=== PATIENT | male | born 1945 | race Caucasian/White ===

== ENCOUNTER 2016-12-24 08:41 | Inpatient (IN) | payer MEDICARE ==
--- NOTE | 2016-12-21 12:58 | PCM.ANEPRE ---
Anesthesia Pre-Op Review Reason for Review: RADHA MUÑOZ 03/18 Anesthesia Recommendations: Proceed with Procedure Additional Comments STOP 5 hypertensive on B Juanpablo and amlodipine/HCTZ I feel it is appropriated to proceed with usual SAB with or without adductor canal block Chart Reviewed by: Low Alonso MD Dec 21, 2016 12:58
[~2016-12-24] VITALS: Ht 172.7 cm; Wt 112.8 kg
[2016-12-24] VITALS (11 sets, daily range): BP systolic 117–157; BP diastolic 58–93; PULSE 55–70; RESP 12–18; O2SAT 94–97
[2016-12-24] MEDS: Tranexamic Acid 100 mg/mL 10 mL Inj IV SCH ×2 (06:00→08:00)
[~2016-12-24 08:41] MED LIST: AMLO5TAB2 PO; Bupivacaine Liposome 1.3% 20 mL Inj INFILTRATE ONE; CARV12.52 PO; CeFAZolin Inj 2 GM in IV Premix 1 EACH IV ONE; HYDR25TA4 PO; Lactated Ringer's 1,000 ML IV ONE; Vancomycin Inj 1,000 MG in IV Premix 1 EACH IV ONE; [UNRECOGNIZED DRUG - CODE] TP
[2016-12-24] MEDS ORDERED: SAW/1TAB2 PO (09:39)
--- NOTE | 2016-12-24 11:15 | PCM.HPANE ---
Patient Data Date of Service: Dec 24, 2016 Surgeon Admitting Provider: Attending Provider:Brian Russ MD Primary Care Physician:Franco Mantilla MD Other Provider:Osiris Sahu Anesthesia Reason for Visit Left Knee Arthritis Ht/WT & BMI Height (Feet): 5 Height (Inches): 8.00 Weight (Kilograms): 108.5 Body Mass Index 36.00 Allergies Uncoded Allergies: gentamycin (crobefate) (Adverse Reaction, Severe, EYES SWELL, 12/20/16) Past Anesthesia History Anesthesia History: Denies:: Anesthesia Reactions, Malignant Hyperthermia Diabetes History Hx Diabetes?: No MRSA MRSA: No Medications Hypertension Medication: Yes (HCTZ,AMLODIPINE) Home Meds Incl Beta Juanpablo: Yes Date Beta Juanpablo Taken: Dec 24, 2016 Time Beta Juanpablo Taken: 0600 Reported Medications Saw/Vit E/Sod Carin/Lyc/Beta/Pyg (Prostate Health Caplet)1 Each Tablet1 Each PO 12/24/16 Trolamine Salicylate (Alcis)59.15 Ml Cream.ml.1 Applic TP DIRECTED PRN For Pain 10% 12/20/16 Hydrochlorothiazide 25 Mg [id number] Mg PO BID 30 Days Ref 0 12/20/16 Carvedilol 12.5 Mg Lgpfmg02.5 Mg PO BID Ref 0 12/20/16 Amlodipine 5 Mg Tablet5 Mg PO DAILY Ref 0 12/20/16 History History of ENT Problems?: Yes HEENT History: Positive for:: Cataracts (S/P B/L [id number]) Hx of Heart Problems?: Yes Cardiovascular History: Positive for:: Hypertension Denies:: Heart Murmur Hx of Respiratory Problem?: No Respiratory History: Denies:: Use of C-PAP Machine Hx Neurologic Problems?: Yes Neurological History: Positive for:: TIA (2010) Hx of GI Problems?: No Hx of Problems?: No Male Hx: Denies:: Prostate Problems Scrotal Mass Testicular Surgery Skin History: Denies:: History Skin Disorders? Pressure Ulcers Hx Musculoskeletal Problems?: Yes Musculoskeletal History: Positive for:: Degenerative Joint Musculoskeletal Trauma (S/P ANKJLE FUSION) Osteoarthritis (LT KNEE=CURRENT PROBLEM) Hx of Psycho/Social Problems?: No Hx Surgeries?: Yes (B/L CATARACTS,ANKLE FUSION) Hx Any Other Health Problems?: Yes Other History: Denies:: Cancer Endocrine Disease Hospitalization Thyroid Disease History Blood Transfusions: Denies:: Blood Transfusions Hx Diabetes: No Have You Smoked inLast 12 mo: No Stop/Bang S-Snoring: Do You Snore Loudly: No T-Tired: feel tired, fatigued: No O-Obsered: Observed not breath: No P-Blood Pressure: treated: Yes B- Body Mass Index > 35 kg/m2: Yes A- Age over 50: Yes N- Neck Large Circumference: Yes G- Gender Male: Yes PASCUAL Total Score: 5 PASCUAL Risk Assessment: High Risk, =/>3 Yes PASCUAL Category 2: Yes Risk Assessment Category Category 1A: Patient has history of documented sleep apnea, and HAS NOT received any narcotic, sedative or anesthesia administration during this stay. Category 1B: Patient has history of documented sleep apnea, and HAS received any narcotic , sedative or anesthesia administration during this stay Category 2: Patient has SUSPECTED Obstructive Sleep Apnea, and HAS received any narcotic , sedative or anesthesia administration during this stay. Category 3: Patient has SUSPECTED Obstructive Sleep Apnea and HAS NOT received narcotic, sedative or anesthesia administration during this stay. Category 4: Outpatient in Procedural Areas with known sleep apnea or who screen positive for High Risk via the STOP/BANG questionnaire. Exam Exam Vital Signs Vital Signs Date Time Temp Pulse Resp B/P Pulse Ox O2 Delivery O2 Flow Rate FiO2 12/24/16 09:15 36.2 61 18 157/69 95 Room Air General Appearance: Alert, Oriented X3, Cooperative, No Acute Distress HEENT/AIRWAY: MP 2 Lungs: Normal Air Movement Heart: Exam Unremarkable Meds/Labs/Diagnostics Admission Meds Current Medications Lactated Ringer's 1,000 ml @ 120 mls/hr Q8H20M ONCE IV Last administered on 08:53; Start 12/24/16 at 05:00; Stop 12/24/16 at 13:19 Vancomycin/0.9 % Sod Chloride/ Premix (Vancomycin Inj/ IV Premix) 200 ml @ 133.333 mls/hr PREOP ONCE IV Last administered on 12/24/16 09:20; Start 12/24 at 06:00; Stop 12/24/16 at 07:29; Status DC Plan Impression Patient chart reviewed, patient interviewed and anesthestic plan with risks, benefits, and alternatives discussed, and informed consent obtained. NPO Status: 7PM ASA Physical Status: ASA2 Mod Systemic Disease Anesthetic Plan: Regional Block (Femoral block for post op pain), SAB Bene/Risks/Altern/Consents: Yes HP Complete Prior to Induction: Yes Oliver Cm MD Dec 24, 2016 11:15
[2016-12-24] MEDS ORDERED: Bupivacaine Liposome 1.3% 20 mL Inj ONE (11:37)
[2016-12-24] MEDS ORDERED: Bupivacaine Liposome 1.3% 20 mL Inj INFILTRATE ONE ×2 (12:30)
[2016-12-24] MEDS ORDERED: Bupivacaine-MPF 0.25%/EPI 30 mL Inj INFILTRATE ONE ×2 (12:30)
[2016-12-24] MEDS ORDERED: Lactated Ringer's 500 ML IV PRN (12:48)
[2016-12-24] MEDS ORDERED: Lactated Ringer's 1,000 ML IV SCH (12:48)
[2016-12-24] MEDS ORDERED: hydrALAZINE 20 mg/mL Inj IVPUSH PRN (12:50)
[2016-12-24] MEDS ORDERED: Dexamethasone 4 mg/mL Inj IVPUSH PRN (12:50)
[2016-12-24] MEDS ORDERED: HYDROmorphone 1 mg/mL Inj IVPUSH PRN (12:50)
[2016-12-24] MEDS ORDERED: EPHEDrine Sulfate 50 mg/mL Inj IVPUSH PRN (12:50)
[2016-12-24] MEDS ORDERED: Ondansetron 2 mg/mL 2 mL Inj IVPUSH PRN (12:50)
[2016-12-24] MEDS ORDERED: Phenylephrine 10,000 mCg/mL Inj IVPUSH PRN (12:50)
[2016-12-24] MEDS ORDERED: Atropine 0.4 mg/mL Inj IVPUSH PRN (12:50)
[2016-12-24] MEDS ORDERED: fentaNYL-PF 50 mCg/mL 2 mL Inj IVPUSH PRN (12:50)
[2016-12-24] MEDS ORDERED: Labetalol 5 mg/mL 4 mL Inj IV PRN (12:50)
[2016-12-24] MEDS ORDERED: MetoCLOpramide 5 mg/mL 2 mL Inj IVPUSH PRN (12:50)
[2016-12-24] MEDS ORDERED: Lactated Ringer's 1,000 ML IV ONE (13:19)
--- NOTE | 2016-12-24 14:01 | PCM.ANEP1 ---
Post Anesthesia Phase 1 PACU Phase 1 Assessment Date of Service: Dec 24, 2016 Vital Signs Vital Signs Date Time Temp Pulse Resp B/P Pulse Ox O2 Delivery O2 Flow Rate FiO2 12/24/16 13:55 36.2 64 16 118/58 95 Room Air 12/24/16 09:15 36.2 61 18 157/69 95 Room Air Anesthetic Administered: Regional Block, SAB Level of Alertness: Awake, talking TURNER's with Equal Strength: No Pain: No Nausea or Vomiting: No Oxygen Delivery: Room Air Lungs: Normal Air Movement Oliver Cm MD Dec 24, 2016 14:01
--- NOTE | 2016-12-24 14:01 | PCM.ANEP2 ---
Post Anesthesia Evaluation ASA/CMS Post Anesthesia Date of Service: Dec 24, 2016 VS in Patient's Normal Range?: Yes Resp Stable; Airway Patent?: Yes CV Function & Hydration Stable: Yes Mental Status Recovered?: Yes Pain control Satisfactory?: Yes N/V Control Satisfactory?: Yes Oliver Cm MD Dec 24, 2016 14:01
[2016-12-24 14:26] LABS: APPEARANCE,URINE HAZY (CLEAR,HAZY); COLOR,URINE STRAW (YELLOW); OCCULT BLOOD,URINE NEGATIVE (NEGATIVE); PH,URINE 7.5 (5.0-8.0)
--- NOTE | 2016-12-24 14:27 | DRSVH ---
PROCEDURE: X-RAY LEFT KNEE, ONE OR TWO VIEWS ([id number]) INDICATIONS: CHECK ALIGNMENT TECHNIQUE: 2 views of the knee acquired. COMPARISON: None. FINDINGS: Bones: Patient is status post left knee joint arthroplasty. Hardware components are in expected pos itions. There is a slight varus angulation. Visualized bony structures are intact. Soft tissues: Overlying postoperative changes are noted including a joint effusion, joint and soft t issue gas, and soft tissue edema. A surgical drain is present. IMPRESSION: 1. Postsurgical changes status post left knee arthroplasty as described. Dictated by: Rome Warren M.D. on 12/24/2016 at 14:24 Approved by: Rome Warren M.D. on 12/24/2016 at 14:25
--- NOTE | 2016-12-24 14:50 | NUR ---
Arrived on Unit Patient arrived on floor from PACU in stable condition. VSS. A&Ox3. Dressing CDI. HemoVac clamped until 1700. IV infiltrated. Unable to establish new IV. IV therapy contacted. at bedside. Patient orientated to bed, call light, and room. Call light and tray table within reach. Will continue to monitor patient hourly.
[2016-12-24] MEDS ORDERED: Bupivacaine 0.5% 50 mL Inj ONE (15:00)
[2016-12-24] MEDS ORDERED: Propofol 10,000 mCg/mL 20 mL Inj ONE (15:00)
[2016-12-24] MEDS ORDERED: Ondansetron 2 mg/mL 2 mL Inj ONE (15:00)
[2016-12-24] MEDS ORDERED: Dexamethasone 4 mg/mL Inj ONE (15:00)
[2016-12-24] MEDS ORDERED: Lidocaine PF 1% 30 mL Inj ONE (15:00)
[2016-12-24] MEDS ORDERED: fentaNYL-PF 50 mCg/mL 2 mL Inj ONE (15:00)
[2016-12-24] MEDS ORDERED: MetoCLOpramide 5 mg/mL 2 mL Inj IV PRN (15:50)
[2016-12-24] MEDS ORDERED: Sodium Biphos-Phos 133 mL Enema RECTAL PRN (15:50)
[2016-12-24] MEDS ORDERED: Ondansetron 2 mg/mL 2 mL Inj IV PRN (15:50)
[2016-12-24] MEDS ORDERED: HYDROcodone-APAP 5-325 mg Tablet PO PRN (15:50)
[2016-12-24] MEDS ORDERED: Alum-Mag Hydrox-Simeth 30 mL Suspension PO PRN (15:50)
[2016-12-24] MEDS ORDERED: Magnesium Hydroxide 10 mL Oral Concentration PO PRN (15:50)
[2016-12-24] MEDS ORDERED: LORazepam 0.5 mg Tablet PO PRN (15:50)
[2016-12-24] MEDS ORDERED: Ondansetron 8 mg ODT Tablet PO PRN (15:50)
[2016-12-24] MEDS ORDERED: diphenhydrAMINE 25 mg Capsule PO PRN (15:50)
[2016-12-24] MEDS: Lactated Ringer's 1,000 ML IV SCH (17:10)
[2016-12-24] MEDS: hydrOXYzine Pamoate 25 mg Capsule PO PRN ×2 (18:22→23:24)
[2016-12-24] MEDS: oxyCODONE-Acetamin 5-325 mg Tablet PO PRN (18:22)
[2016-12-24] MEDS ORDERED: CeFAZolin 2 Gm/50 mL D5W Premix IV SCH (20:30)
[2016-12-24] MEDS: Ketorolac 15 mg/mL Inj IV SCH (21:58)
--- NOTE | 2016-12-24 23:13 | OP ---
[address] [address] OPERATIVE REPORT PATIENT: TOMY MATTHEWS : 1945 MR#: [id number] ADMIT: 12/24/2016 JOB ID: [id number] DATE OF SURGERY: 12/24/2016 PREOPERATIVE DIAGNOSIS(ES): Advanced osteoarthritis, left knee. POSTOPERATIVE DIAGNOSIS(ES): Advanced osteoarthritis, left knee. PROCEDURE: Total knee arthroplasty. SURGEON: Brian Russ MD. SQUAD LEADER: Niki Briggs PA-C. Territory Development Manager required due to the major complexity of the operation. COMPLICATIONS: None. INDICATIONS: This man has severe osteoarthritis of his left knee. He has failed conservative treatment and elects to proceed with a total knee replacement. He understands and accepts the potential for risks and complications, which include but is not limited to infection, thromboembolic, neurovascular events, as well as potential for implant failure. Understanding these, he wishes to proceed. PROCEDURE: The patient was prepped and draped in usual sterile fashion. An anteromedial approach was made. The patella was subluxed laterally, cut transversely, sized to a 38. Drill holes were made. Patellar protection plate was utilized. Drill hole placed in the distal femur. A 5 degree valgus distal femoral cut was made. Bone fragments removed. External rotation tool was utilized and the knee was sized to a 9 femoral component, fixed in appropriate position. Rotation and drill holes and chamfer cuts were made. The tibia was cut with the extramedullary tool sized to a G component. Extensive osteophytes and degenerative meniscal tears were removed. All meniscal tears and osteophytes were removed. The knee was lavaged with pressurized power irrigant. The tibia was prepared with component in appropriate position and rotation. Pressurized lavage was followed by pressurized cementation of the components. Excess cement was removed during the curing process and the final construct was assembled. The deep Hemovac drain was left. Tourniquet let down. Hemostasis achieved. Knee closed with #2 Quill deep, followed by 2-0 Vicryl, 3-0, and a 4-0 intracuticular stitch. Sterile dressings were applied. Patient returned to the recovery room in stable condition. He tolerated the procedure well. There were no complications.
[2016-12-25 00:45] VITALS: BP 124/78; PULSE 81; RESP 18; O2SAT 98
[2016-12-25] MEDS: Ketorolac 15 mg/mL Inj IV SCH ×2 (03:18→08:52)
--- NOTE | 2016-12-25 03:29 | NUR ---
Pain On initial assessment, patient denied having any knee pain. At 2315, patient stated pain 8/10 on pain scale. Pain medication administered along with Vistaril. Patient resting comfortably. Continuous pulse ox on. Patient encouraged to take deep breaths with coughing. VSS. Call light within reach. Care continues.
[2016-12-25 05:35] VITALS: BP 127/66; PULSE 57; RESP 20; O2SAT 96
[2016-12-25] MEDS: oxyCODONE-Acetamin 5-325 mg Tablet PO PRN ×5 (05:48→23:47)
[2016-12-25] MEDS: hydrOXYzine Pamoate 25 mg Capsule PO PRN ×4 (05:48→23:48)
[2016-12-25 06:19] LABS: BASOPHILS % (AUTO) 0.1 % (0-3); EOSINOPHILS % (AUTO) 0 % (0-5); MONOCYTES % (AUTO) 8.7 % (4-12); Mean Corpuscular Hemoglobin 30.5 pg (27.0-35.0); Mean Corpuscular Volume 88.3 fL (81-100); NEUTROPHILS % (AUTO) 77.5 % (40-74); Platelet Count 193 bil/L (150-400)
[2016-12-25] MEDS ORDERED: CeFAZolin Inj 2 GM in IV Premix 1 EACH IV SCH (07:30)
--- NOTE | 2016-12-25 07:56 | PCM.PNORTH ---
Subjective Date of Service: Dec 25, 2016 Visit Information: Reason for Visit Left Knee Arthritis Surgery/Surgery Date Post-Op Day # Date of Admission: Dec 24, 2016 at 14:59 Hospital Day # Subjective Found patient awake and alert and sitting up in bed. No complaints of pain at this time. Discussed participation with physical therapy and timing for discharge. Patient indicates he does have help at home and is prepared to discharge on her before postop day 3. Patient also indicates he has 3 steps to enter his home and I have asked him to discuss that with physical therapy. As well patient relates that he must go home to [place] and will need some arrangements for priority boarding at the [facility]. I will leave high school social science teacher note towards that end. Patient has undergone a right ankle fusion approximately 2 years ago and is familiar with recuperation from major surgery. Postop General: No Complaints, No Shortness of Breath, No Chest Pain, Good Appetite Pain Management: PO, IV Push Objective Exam Objective Orientation: Alert and oriented 3 and pleasant. Dressing: Interoperative dressing is clean dry and intact. Wound: Wound is not observed today. Compartments: Calf and thigh are soft and nontender. Mobility/sensation: Mobility and sensation are intact at left lower extremity distally. FLORY hose: None Coleman: In place and working Drain: In place and working Gait: No gait as of this time with formal physical therapy. Vital Signs and I/O Vital Sign - Last Date Time Temp Pulse Resp B/P Pulse Ox O2 Delivery O2 Flow Rate FiO2 12/25/16 05:35 36.6 57 20 127/66 96 Room Air Intake and Output 12/24/16 12/24/16 12/25/16 Cumulative From/Thru 15:00 23:00 07:00 12/20/16 10:20 - 12/25/16 06:15 Intake Total 1560 ml 472 ml 1560 ml 3592 ml Output Total 130 ml 350 ml 550 ml 1030 ml Balance 1430 ml 122 ml 1010 ml 2562 ml Intake Oral 400 ml 850 ml 1250 ml IV Total 1560 ml 72 ml 710 ml 2342 ml Output Urine Total 80 ml 350 ml 450 ml 880 ml Drainage Total 100 ml 100 ml Estimated Blood Loss 50 ml 50 ml # Bowel Movements 0 0 Lab & Micro Results Laboratory Tests Test 12/24/16 14:00 12/25/16 05:23 Urine Color Straw (YELLOW) Urine Appearance Hazy (CLEAR,HAZY) Urine pH 7.5 (5.0-8.0) Urine Specific [place] 1.015 (1.003-1.035) Urine Protein Negativemg/dL (NEG,TRACE) Urine Glucose (UA) Negativemg/dL (NEGATIVE) Urine Ketones Negativemg/dL (NEGATIVE) Urine Occult Blood Negative (NEGATIVE) Urine Nitrite Negative (NEGATIVE) Urine Bilirubin Negative (NEGATIVE) Urine Urobilinogen 1.0mg/dL (NORMAL) Urine Leukocyte Esterase Negative (NEGATIVE) Urine RBC 0-2/hpf (0-2) Urine WBC 0-5/hpf (0-5) Urine Epithelial Cells Occasional/hpf (NONE-MOD) Urine Crystals Amorphous phosphates Urine Bacteria None/hpf (NONE-FEW) Urine Hyaline Casts None/lpf (NONE) Urine Granular Casts None seen (NONE SEEN) Urine Waxy Casts None seen (NONE SEEN) Urine Red Blood Cell Casts None seen (NONE SEEN) Urine White Blood Cell Casts None seen (NONE SEEN) Urine Mucus None seen (None Seen) Urine Trichomonas None seen (NONE SEEN) Urine Yeast None (NONE SEEN) Urinalysis Comment None Urine Culture Reflexed Not indicated White Blood Count 14.4th/mm3 (3.8-10.1) Red Blood Count 4.20mil/mm3 (4.40-5.80) Hemoglobin 12.8g/dL (13.8-17.2) Hematocrit 37.1% (41.0-50.0) Mean Corpuscular Volume 88.3fL (81-100) Mean Corpuscular Hemoglobin 30.5pg (27.0-35.0) Mean Corpuscular Hemoglobin Concent 34.5% (32.0-37.0) Red Cell Distribution Width 12.3% (12.3-15.4) Platelet Count 193bil/L (150-400) Neutrophils (%) (Auto) 77.5% (40-74) Lymphocytes (%) (Auto) 13.4% (14-46) Monocytes (%) (Auto) 8.7% (4-12) Eosinophils (%) (Auto) 0% (0-5) Basophils (%) (Auto) 0.1% (0-3) Result Diagram: 12/25/16 0523 General Appearance: Alert, Oriented X3, Cooperative, No Acute Distress Extremities: No Compartment Syndrom Noted, Thigh & Calf Soft/Nontender Postop Sensory Motor: Distal Motor Intact, Movement in Toes, Distal Sensation Intact SURGICAL WOUND : Drain Location Body Site: Knee Wound Drainage Type: Hemovac Activity: Activity per PT, Ambulate with PT (weightbearing as tolerated on left lower extremity using front-wheeled walker.) Catheters: Urethral 2 Way Coleman Assessment & Plan Impression Patient is a 71-year-old male who is undergone elective left total knee arthroplasty on 12/24/2016. He is alert and well-oriented and has made plans for his surgical recuperation. He anticipates discharge on Kathy for postop day 3 to home where he has family has caregivers. Problems: Plan Postop day # 1 from left total knee arthroplasty performed on 12/24/[address] Brian Russ. Weight bearing status: Weightbearing as tolerated on the left lower extremity Mobility aid: Front-wheeled walker Immobilization: None Precautions: Standard postoperative precautions for safety with up with assist until cleared by physical therapy for independent mobility. Physical therapy: Continue formal physical therapy for mobility, gait and safety. Outpatient physical therapy has been arranged if patient. Pain control: Continue pain control with by mouth pain medication avoiding IV pain medication if possible. Home pain medication Rx is in chart. DVT prophylaxis: Continue ASA 81 mg EC by mouth twice a day 6 weeks postop for DVT prophylaxis. Wound care: Keep surgical wound clean dry and covered seen in office in 2 weeks. Coleman: Present and working. Will be removed today on postoperative day 1 after first PT session. Dressing: Interoperative dressing is clean dry and intact. Interoperative dressing will be changed postop dressing on postop day #2 Drain: Present and working. Interoperative dressing will be removed today on postop day 1 at 24 hours postop. FLORY hose: None. Bilateral thigh-high FLORY hose we ordered today. Nursing communication: Nursing please discontinue Coleman today on postop day 1 after first PT session. Nursing please discontinue wound drain today on postop day 1 at 24 hours postop. Nursing please measure for bilateral thigh- high FLORY hose. Left lower extremity FLORY hose may be placed on postop day 2 after interoperative bandage has been changed. 2-week follow-up: Follow-up in 2 weeks at [facility] orthopedic clinic with mid-level provider on prearranged appointment for wound check and suture removal. 6-week follow-up: Follow-up in 6 weeks at [facility] orthopedic clinic with Dr. Brian Russ on prearranged appointment with breath 2 view knee x -rays on arrival. Plan: Patient anticipates discharge to home with family as caregivers on or before postop day #3. Discharge instructions: Weightbearing as tolerated on the left lower extremity using front-wheeled walker. Begin outpatient physical therapy as soon as possible post discharge. Keep wound clean dry and covered until seen in office in 2 weeks. Patient may shower and wound should be kept dry and covered. Discharge plan: Anticipate discharge to home with family as caregivers on her before postop day #3. VTE Prophylaxis: SCDs (right lower extremity only), FLORY Hose (bilateral thigh- high FLORY hose.), Other (ASA 81 mg EC by mouth twice a day 6 weeks postoperative DVT prophylaxis.) Gaston Walden PA-C Dec 25, 2016 07:56
[2016-12-25] MEDS: Lactated Ringer's 1,000 ML IV SCH (08:30)
[2016-12-25] MEDS ORDERED: Vancomycin Inj 1,500 MG in 0.9% Sodium Chloride 500 ML IV ONE (08:30)
--- NOTE | 2016-12-25 11:58 | NUR ---
Evaluation completed. Please go to "Notes" then click on "Assessments and Notes" (bottom left corner of screen). Then select appropriate discipline tab on top of screen.
[2016-12-25 14:46] VITALS: BP 120/70; PULSE 64; RESP 20; O2SAT 96
--- NOTE | 2016-12-25 15:30 | NUR ---
Social Work: Initial Assessment Data: See Initial Assessment. Pt is a 71 year old male admitted 12/24/16 for left knee arthritis per H&P. Pts insurance is group health medicare. PCP is Franco Mantilla MD. EMR Reviewed. SW met with pt at bedside to discuss discharge planning, SW role explained. Pt is alert and oriented x3. Pt resides in [facility] in a house with his and son where he remains independent with his ADLs. Pt does not use any DME and drives. Pt has lead neurodiagnostic technologist with HH or SNF. 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 PT assessed patient and recommending home at this time. Pt informed SW he already has outpt PT set up on [facility]. Pt requested Priority Boarding paperwork from [facility], SW followed up regarding this request and will be providing paperwork at discharge. SW educated about DPOA/Advanced Directives and provided pt with paperwork. SW encouraged pt to bring copy of completed DPOA to the hospital. Pts to transport home at discharge. SW provided phone number and plan on whiteboard. No anticipated discharge needs. SW continues to follow. Assessment: Pt who is independent at baseline. Plan: Anticipate pt to discharge home with to transport via POV. SW to provide Priority Boarding paperwork. Pt to receive outpt services for PT. No anticipated discharge needs. SW continues to follow. Addendum: 12/25/16 at 1530 by HARRIETT AARON Amended: Links added.
--- NOTE | 2016-12-25 18:12 | NUR ---
Post op day #1- Patient up ambulating with PT and FWW. Tolerating activity well. Ordered pain meds effective for incisional pain. Left leg dressing dry and intact. Hemovac and hopper cath dc'd this am per order. Patient voiding per urinal.
[2016-12-25 19:57] VITALS: BP 130/66; PULSE 65; RESP 18; O2SAT 96
--- NOTE | 2016-12-25 23:55 | NUR ---
Ortho Sensation intact, dressing dry. Incisional pain reduced to 1-2 with Percocet. MOM given at HS for constipation. Resting well without complaints. Continue with PT, progressing towards discharge. Addendum: 12/26/16 at 0755 by DEONNA CALHOUN RN needs 2 percocet Q3-4hrs to maintain good pain control.
[2016-12-26] MEDS: Lactated Ringer's 1,000 ML IV SCH ×2 (01:10→17:50)
[2016-12-26] MEDS: oxyCODONE-Acetamin 5-325 mg Tablet PO PRN ×6 (02:14→19:37)
[2016-12-26 04:35] VITALS: BP 120/65; PULSE 70; RESP 16; O2SAT 97
--- NOTE | 2016-12-26 06:32 | PCM.PNORTH ---
Subjective Date of Service: Dec 26, 2016 Visit Information: Reason for Visit Left Knee Arthritis Surgery/Surgery Date Post-Op Day # Date of Admission: Dec 24, 2016 at 14:59 Hospital Day # Subjective Found patient awake and alert this morning and sitting up in bed. No complaints of pain at this time. Patient did discuss that he refused some of his pain medication yesterday because he was feeling so well and had a rough night which required IV pain medication to manage. I spoke with nursing and patient and he will remain on his regular by mouth meds today without any IV and restabilize his pain control. Patient if talked about discharging tomorrow on postop day 3 and I encouraged him to continue participating well with physical therapy so that he may achieve safe ambulation for home. Postop General: No Complaints, No Shortness of Breath, No Chest Pain, Good Appetite Pain Management: PO Objective Exam Objective Orientation: Alert and oriented 3 and pleasant. Dressing: Interoperative dressing is changed this morning to fishnet and ABD style dressing with Silverlon. Wound: Interoperative wound is clean dry and intact in good condition. Drain site is dry. Compartments: Calf and thigh are soft and nontender. Mobility/sensation: Toe wiggle and sensation are intact at the left lower extremity distally. FLORY hose: None. FLORY hose were ordered yesterday on 12/25/2016 but were apparently were missed. Nursing will set bilateral thigh-high FLORY hose today. Coleman: Absent Drain: Absent Gait: Gait 60 feet yesterday on postoperative day #1, 12/25/2016. Vital Signs and I/O Vital Sign - Last Date Time Temp Pulse Resp B/P Pulse Ox O2 Delivery O2 Flow Rate FiO2 12/26/16 04:35 36.4 70 16 120/65 97 Room Air Intake and Output 12/25/16 12/25/16 12/26/16 Cumulative From/Thru 15:00 23:00 07:00 12/20/16 10:20 - 12/26/16 06:01 Intake Total 1765 ml 600 ml 5957 ml Output Total 17 ml 1400 ml 740 ml 3187 ml Balance -17 ml 365 ml -140 ml 2770 ml Intake Oral 1200 ml 600 ml 3050 ml IV Total 565 ml 2907 ml Output Urine Total 1400 ml 740 ml 3020 ml Drainage Total 17 ml 117 ml Estimated Blood Loss 50 ml # Bowel Movements 0 0 Result Diagram: 12/25/16 0523 General Appearance: Alert, Oriented X3, Cooperative, No Acute Distress Extremities: No Compartment Syndrom Noted, Thigh & Calf Soft/Nontender Postop Sensory Motor: Distal Motor Intact, Movement in Toes, Distal Sensation Intact SURGICAL WOUND : Drain Location Body Site: Head Wound Drainage Type: Hemovac Activity: Activity per PT, Ambulate with PT (weightbearing as tolerated on left lower extremity using front-wheeled walker.) Catheters: None Assessment & Plan Impression Patient is a 71-year-old male who is postop day 2 from a left total knee arthroplasty on 12/24/2016 and participated well with physical therapy on postop day 1 but has had some additional pain last night. He was restarted on IV pain medication and this will be discontinued immediately today and patient will be placed back on routine by mouth meds to avoid spike in pain. Problems: Plan Postop day # 2 from left total knee arthroplasty performed on 12/24/[address] Brian Russ. Weight bearing status: Weightbearing as tolerated on the left lower extremity Mobility aid: Front-wheeled walker Immobilization: None Precautions: Standard postoperative precautions for safety with up with assist until cleared by physical therapy for independent mobility. Physical therapy: Continue formal physical therapy for mobility, gait and safety. Outpatient physical therapy has been arranged by patient. Pain control: Continue pain control with by mouth pain medication avoiding IV pain medication if possible. Home pain medication Rx is in chart. DVT prophylaxis: Continue ASA 81 mg EC by mouth twice a day 6 weeks postop for DVT prophylaxis. Wound care: Keep surgical wound clean dry and covered seen in office in 2 weeks. Coleman: Absent Dressing: Interoperative dressing is clean dry and intact. Interoperative dressing is changed postop dressing with ABDs, fishnet and Silverlon. Surgical wound is clean dry and intact and in very good condition. Drain: Absent FLORY hose: None. Bilateral thigh-high FLORY hose were ordered on 12/25/2016 and apparently were missed. I have talked with nurse as morning and she will order to place these today. Nursing communication: Nursing please measure for bilateral thigh- high FLORY hose in place these on patient today.. 2-week follow-up: Follow-up in 2 weeks at [facility] orthopedic clinic with mid-level provider on prearranged appointment for wound check and suture removal. 6-week follow-up: Follow-up in 6 weeks at [facility] orthopedic clinic with Dr. Brian Russ on prearranged appointment with breath 2 view knee x -rays on arrival. Plan: Patient anticipates discharge to home with family as caregivers on postop day #3. Discharge instructions: Weightbearing as tolerated on the left lower extremity using front-wheeled walker. Begin outpatient physical therapy as soon as possible post discharge. Keep wound clean dry and covered until seen in office in 2 weeks. Patient may shower with wound uncovered after postoperative day 4 in wound is dry. Discharge plan: Anticipate discharge to home with family as caregivers on postop day #3. VTE Prophylaxis: SCDs (right lower extremity only), FLORY Hose (bilateral thigh- high FLORY hose.), Other (ASA 81 mg EC by mouth twice a day 6 weeks postoperative DVT prophylaxis.) Gaston Walden PA-C Dec 26, 2016 06:32
[2016-12-26 07:50] VITALS: BP 150/70
[2016-12-26 08:15] VITALS: BP 142/78; PULSE 64; RESP 20; O2SAT 95
[2016-12-26] MEDS: hydrOXYzine Pamoate 25 mg Capsule PO PRN ×2 (12:50→19:38)
--- NOTE | 2016-12-26 15:12 | NUR ---
Evaluation completed. Please go to "Notes" then click on "Assessments and Notes" (bottom left corner of screen). Then select appropriate discipline tab on top of screen.
[2016-12-26 15:24] VITALS: BP 130/66; PULSE 72; RESP 18; O2SAT 93
--- NOTE | 2016-12-26 15:35 | NUR ---
Social Work- Readiness for Discharge: Data: EMR reviewed. Pt is on day 2 of hospitalization for left knee arthritis per H&P. PT worked with pt and recommended outpt services. Pt is agreeable to this and already has services in place. Pt's to provide transport home at discharge. SW to provide priority ferry boarding paperwork to pt at time of discharge. No anticipated discharge needs. SW will continue to follow if needs arise. Assessment: Pt who is independent at baseline. Plan: Pt to receive outpt PT services. to transport home at discharge via POV. SW to provide priority ferry boarding paperwork to pt at time of discharge. No anticipated discharge needs. SW will continue to follow if needs arise. LEXIE Morfin
--- NOTE | 2016-12-26 18:03 | NUR ---
pain / Ambulation pain controlled with 2 tabs Percocet Q3-4hrs PRN. Pt was up wit6h PT waking with FWW. Care continues
[2016-12-26 19:32] VITALS: BP 124/70; PULSE 66; RESP 20; O2SAT 94
[2016-12-27 05:26] VITALS: BP 150/75; PULSE 76; RESP 21; O2SAT 95
[2016-12-27] MEDS: oxyCODONE-Acetamin 5-325 mg Tablet PO PRN ×3 (06:04→13:07)
[2016-12-27 08:01] VITALS: BP 150/78; PULSE 66; RESP 20; O2SAT 97
--- NOTE | 2016-12-27 08:38 | PCM.PNORTH ---
Subjective Date of Service: Dec 27, 2016 Visit Information: Reason for Visit Left Knee Arthritis Surgery/Surgery Date status post left total knee arthroplasty 12/24/2016 Post-Op Day # 3 Date of Admission: Dec 24, 2016 at 14:59 Hospital Day # Subjective Patient feels he is doing quite well with his rehabilitation. He walked 60 feet with therapy yesterday. He would like to go home today. He would like to cast the afternoon ferry to [facility]. He also requests that his primary care provider provide refills for his pain medication since his pharmacy and primary care provider are on [facility]. Postop General: No Complaints, No Shortness of Breath, No Chest Pain, Good Appetite Pain Management: PO Objective Exam Objective Patient is seen lying in bed. He is alert oriented and cooperative to exam. His is at bedside. Vital Signs and I/O Vital Sign - Last Date Time Temp Pulse Resp B/P Pulse Ox O2 Delivery O2 Flow Rate FiO2 12/27/16 08:01 36.8 66 150/78 97 12/27/16 05:26 21 Room Air Intake and Output 12/26/16 12/26/16 12/27/16 Cumulative From/Thru 15:00 23:00 07:00 12/20/16 10:20 - 12/27/16 06:26 Intake Total 660 ml 400 ml 7017 ml Output Total 750 ml 450 ml 4387 ml Balance -90 ml -50 ml 2630 ml Intake Oral 660 ml 400 ml 4110 ml IV Total 2907 ml Output Urine Total 750 ml 450 ml 4220 ml Drainage Total 117 ml Estimated Blood Loss 50 ml # Bowel Movements 0 0 0 Result Diagram: 12/25/16 0523 General Appearance: Alert, Oriented X3, Cooperative, No Acute Distress Extremities: Distal Pulses Palpable, No Compartment Syndrom Noted, Tenderness/ Swelling Noted (left knee as expected) Postop Sensory Motor: Distal Motor Intact, NVI Distally SURGICAL WOUND : Wound Location/Description Left knee: Dressing clean dry and intact. Drain Location Body Site: Head Activity: Activity per PT, Ambulate with PT (weightbearing as tolerated on left lower extremity using front-wheeled walker.) Catheters: None Assessment & Plan Impression Status post left total knee arthroplasty Problems: Plan Weightbearing: Weightbearing as tolerated with walker DVT prophylaxis: aspirin 81 mg twice a day 6 weeks Physical therapy for transfers, progressive ambulation, therapeutic exercise Wound care: Dressing is clean dry and intact. The patient may shower if the wound has no drainage present x 24 hours. Wound may be uncovered to shower. Let soap and water run over the wound, pat dry and apply a new dressing. Discharge plan: Discharge home today. Start outpatient physical therapy next week. It is already scheduled. clinical services professional: Please provide patient with a priority pass for the [facility]. Discharge instructions are reviewed with the patient and his . All questions are answered. Follow-up plan: In 2 weeks at [facility] with ARIEL for wound check and at [address] Russ with x-rays Pain Management: Morphine, Percocet, oxycodone, Vistaril VTE Prophylaxis: SCDs (right lower extremity only), FLORY Hose (bilateral thigh- high FLORY hose.), Other (ASA 81 mg twice a day) Resuscitation Status: CPR: Attempt Resuscitation Wendie Prince PA-C Dec 27, 2016 08:38
--- NOTE | 2016-12-27 09:24 | PCM.DIORTH ---
Ortho Discharge Instruction Date of Service: Dec 27, 2016 Dates of Hospitalization Date of Hospital Admission Dec 24, 2016 at 14:59 Providers Admitting Physician: Brian Russ MD Primary Care Physician: Franco Mantilla MD Attending Physician: Brian Russ MD Diet Discharge Diet: No restrictions Activity Discharge Activity-General: Balance rest and activity, Elevate & ice extremity Left Lower Extremity: Weight Bearing as tolerated Range of motion restrictions: Push yourself with bending and straightening multip[le times a day Discharge Assist Device: Front Wheeled Walker Dressing and Incisional Care Discharge Dressing Care: Keep dressing clean, dry & intact Discharge Hygiene: May shower (se below) Additional Instructions Discharge Instructions Weightbearing: Weightbearing as tolerated with walker Activity: Be up and about every hour doing a knee exercises or walking. Ice the knee 6-10 times per day. Elevate the leg above the level of the heart a few times a day Wear compression stockings for 1 month after surgery DVT prophylaxis: aspirin 81 mg twice a day 6 weeks Wound care: change dressing every 1-2 days. You can reuse the silver pad if it is clean and dry. Leave Steri-Strips in place. We will remove them at the office at the 2 week postop visit The patient may shower if the wound has no drainage present x 24 hours. Wound may be uncovered to shower. Let soap and water run over the wound, pat dry and apply a new dressing. Start outpatient physical therapy next week. It is already scheduled. Prescription is provided for Percocet and Vistaril. Per patient request, primary care provider on [facility] will provide refills on pain medication. Our office can electronically refill Vistaril when needed. Follow Up Plan Follow Up Plan Follow-up plan: In 2 weeks at [facility] with ARIEL for wound check and at [address] Russ with x-rays Call your provider for: Fever, Chills, Shortness of breath, Vomitting, Drainage at incision (excessive), Wound redness (spreading around the wound) Wendie Prince PA-C Dec 27, 2016 09:24
[2016-12-27] MEDS ORDERED: HYDR-3797 PO (09:29)
[2016-12-27] MEDS ORDERED: ASPI-973 PO (09:29)
[2016-12-27] MEDS ORDERED: OXYC1TAB24 PO (09:29)
--- NOTE | 2016-12-27 09:40 | PCM.DC.ORT ---
Discharge Summary Date of Service: Dec 27, 2016 Date of Hospital Admission: Dec 24, 2016 at 14:59 Date of Surgery: Dec 24, 2016 Date of Discharge: Dec 27, 2016 Reason for Hospitalization: Left knee arthritis Procedures Performed: Left total knee arthroplasty Hospital Course: The patient was admitted to the hospital on 12/24/2016 and underwent the above procedure. Antibiotic prophylaxis consisting of Ancef and vancomycin. The surgeon was Dr. Russ. A Coleman was placed perioperatively. Patient tolerated the procedure well and was transferred to recovery room in stable condition. Coleman was discontinued on postop day 1. Patient had physical therapy to work on ambulation and transfers. Weightbearing as tolerated with walker. Pain was managed with morphine, Percocet, oxycodone, and Vistaril. DVT prophylaxis: Aspirin 81 mg twice a day 6 weeks. Patient progressed well with physical therapy and on POD-3 was discharged home in stable condition. Patient's will assist in his care. He has outpatient physical therapy already scheduled to start next week. Patient would prefer to have his primary care provider on [facility] manage his pain medication. Patient was given prescriptions today at discharge for Percocet and Vistaril. Follow-up: at [facility] 2 weeks postop for wound check and at [address] Russ with x-ray Diagnosis at Time of Discharge Status post left total knee arthroplasty Problems: Disposition: Stable Additional Information At [facility] with PA in 2 weeks for wound check and at [address] Russ, with x-ray Discharge Instructions: Weightbearing: Weightbearing as tolerated with walker Activity: Be up and about every hour doing a knee exercises or walking. Ice the knee 6-10 times per day. Elevate the leg above the level of the heart a few times a day Wear compression stockings for 1 month after surgery DVT prophylaxis: aspirin 81 mg twice a day 6 weeks Wound care: change dressing every 1-2 days. You can reuse the silver pad if it is clean and dry. Leave Steri-Strips in place. We will remove them at the office at the 2 week postop visit The patient may shower if the wound has no drainage present x 24 hours. Wound may be uncovered to shower. Let soap and water run over the wound, pat dry and apply a new dressing. Start outpatient physical therapy next week. It is already scheduled. Prescription is provided for Percocet and Vistaril. Per patient request, primary care provider on [facility] will provide refills on pain medication. Our office can electronically refill Vistaril when needed. Amlodipine (Amlodipine) 5 Mg Tablet 5 MG PO DAILY Aspirin (Aspirin) 81 Mg Tablet 81 MG PO BID x 6 weeks after surgery Carvedilol (Carvedilol) 12.5 Mg Tablet 12.5 MG PO BID Hydrochlorothiazide (Hydrochlorothiazide) 25 Mg Tablet 25 MG PO BID Hydroxyzine Pamoate (HydrOXYzine Pamoate) 25 Mg Capsule 1 MG PO Q6H PRN PRN restlessness, spasms Saw/Vit E/Sod Carin/Lyc/Beta/Pyg (Prostate Health Caplet) 1 Each Tablet 1 EACH PO Trolamine Salicylate (Alcis) 59.15 Ml Cream.ml. 1 APPLIC TP DIRECTED PRN PRN For Pain 10% oxyCODONE-Acetaminophen 5-325 mg (oxyCODONE-Acetaminophen 5-325 mg) 1 Each Tablet 1-2 TAB PO Q4H PRN PRN For Severe Pain Max 8 per day Wendie Prince PA-C Dec 27, 2016 09:40
[2016-12-27] MEDS: Lactated Ringer's 1,000 ML IV SCH (10:30)
--- NOTE | 2016-12-27 11:00 | NUR ---
Respiratory P: Pt feeling little diaphoretic last night & lung sounds slightly decreased per noc shift nurse I: Encouraged deep breathing/coughing exercises. Got him an IS and provided teaching and encouraged use 10X/hr while awake. E: Pt was able to show demonstration of IS, no c/o diaphoresis today and lung sounds clear.
[2016-12-27] MEDS: hydrOXYzine Pamoate 25 mg Capsule PO PRN (13:07)
--- NOTE | 2016-12-27 13:23 | NUR ---
DC Pt understands all discharge instructions and all have been reviewed. has filled Rxs and are ready to go home. Pt taken out to car via WC by staff. FWW in hand is patients, all belongings with . Care discontinued
--- NOTE | 2016-12-27 13:31 | NUR ---
Social Work Discharge: Order for discharge acknowledged. Plan is home with who to assist with care needs at home. Patient resides in [facility] and priority boarding pass provided to patient. SW also faxed pass to [facility]. Patient states he to follow up at local oupt therapy center upon discharge. No other anticipated discharge needs identified at this time. SW to follow. PLAN: Home with and outpt PT follow up. [place] pass provided. Prince OWEN
== END 2016-12-27 13:25 | disposition home or self-care (01) | DRG 470 ==
LOC: SAS 08:41 → OSC 14:59
PROVIDERS: ADMIT Orthopaedic Surgery; ATTEND Orthopaedic Surgery
PROC: 0SRD0J9 Replacement of Left Knee Joint with Synthetic Substitute, Cemented, Open Approach (ICD-10-PCS; principal; 2016-12-24 11:30)
DX: M17.12 Unilateral primary osteoarthritis, left knee (principal)